=== PATIENT | female | born 1975 | race African-American/Black ===

== ENCOUNTER 2021-07-11 08:31 | Emergency (ER) | payer MEDICAID ==
[2021-07-11] MEDS ORDERED: Metoclopramide 10 MG/10 ML UDCUP ONE (09:22)
[2021-07-11] MEDS ORDERED: Acetaminophen 500 MG TAB ONE (09:22)
[2021-07-11] MEDS ORDERED: diphenhydrAMINE 50 MG/ML VIAL ONE (09:22)
[2021-07-11] MEDS ORDERED: Metoclopramide HCl 10 MG/2 ML VIAL ONE (09:23)
[2021-07-11 09:53] LABS: Hemoglobin 10.5 g/dL (12.0-16.0); Mean Corpuscular HGB CONC 30.8 g/dL (32.0-36.0); Mean Corpuscular Hemoglobin 23.1 pg (27.0-31.0); Mean Corpuscular Volume 74.8 fL (78.0-98.0); Mean Platelet Volume 8.8 fL (7.4-10.4); Platelet Count 352 thou/uL (130-400); RBC Distribution Width 16.1 % (11.5-14.5); Red Blood Cell (RBC) Count 4.55 mill/uL (4.20-5.40)
[2021-07-11 10:10] LABS: #Basophils 0.1 thou/uL (0.0-0.2); #Eosinphils 0.2 thou/uL (0.0-0.7); #Lymphocytes 2.1 thou/uL (1.20-3.40); #Monocytes 0.3 thou/uL (0.11-0.59); #Neutrophils 3.3 thou/uL (1.40-6.50); %Basophils 0.9 % (0.0-1.0); %Eosinophils 3.1 % (0.0-10.0); %Lymphocytes 35.4 % (21.0-51.0); %Neutrophils 55.5 % (42.0-75.0); ALT (SGPT) 9 U/L (8-55); AST (SGOT) 12 U/L (5-34); Albumin 3.7 g/dL (3.5-5.0); Alkaline Phosphatase 62 U/L (40-110); Anion Gap 11 mmol/L (10-20); Anisocytosis SLIGHT = 6-15 cells (100X) (0-5/hpf); BUN (Urea Nitrogen) 7 mg/dL (7.0-18.7); Bilirubin, Total 0.6 mg/dL (0.2-1.2); Calc. Creatinine Clearance 0 mL/min (70-130); Calcium 9.3 mg/dL (7.8-10.44); Carbon Dioxide 25 mmol/L (22-29); Chloride 105 mmol/L (98-107); Globulin 3.4 g/dL (2.4-3.5); Glucose 119 mg/dL (70-105); MDiff Complete? YES; Microcytosis MODERATE=15-30 cells (100X) (0-5/hpf); Platelet Morphology Comment Appears Adequate; Polychromasia SLIGHT = 2-3 cells (100X) (0-2/hpf); Potassium 3.6 mmol/L (3.5-5.1); Protein, Total 7.1 g/dL (6.0-8.3); Sodium 137 mmol/L (136-145)
[2021-07-11] MEDS ORDERED: Iopamidol-370 76% 500 ML 1 ML ONE (10:15)
== END 2021-07-11 12:20 | disposition home or self-care (01) ==
LOC: ERS 08:31
DX: R51.9 Headache, unspecified (principal); R07.9 Chest pain, unspecified; D64.9 Anemia, unspecified
CPT/HCPCS: 70496; 70498; 71045; 80053; 84484; 85025; 93005; 96374; 96375; J1200; J2765; Q9967

== ENCOUNTER 2021-10-07 18:51 | Emergency (ER) | payer MEDICAID ==
[2021-10-07] MEDS ORDERED: Ondansetron ODT 4 MG TAB ONE (19:39)
[2021-10-07] MEDS ORDERED: Acetaminophen 500 MG TAB ONE (19:39)
[2021-10-08 13:34] LABS: SARS-CoV-2 PCR by NAA DETECTED (NotDetected)
== END 2021-10-07 19:44 | disposition home or self-care (01) ==
LOC: ERS 18:51
DX: U07.1 COVID-19 (principal); J32.0 Chronic maxillary sinusitis
CPT/HCPCS: 99284; Q0162; U0003; U0005

== ENCOUNTER 2023-03-17 08:37 | Outpatient (CLI) | payer OTHER | END 2023-03-17 08:38 | disposition home or self-care (01) | LOC: SCSMRI 08:37 | PROVIDERS: ATTEND Neurological Surgery | DX: M47.26 Other spondylosis with radiculopathy, lumbar region (principal); M47.22 Other spondylosis with radiculopathy, cervical region; Z98.890 Other specified postprocedural states | CPT/HCPCS: 72100; 72141; 72148; 72158 ==

== ENCOUNTER 2023-04-22 17:03 | Emergency (ER) | payer BC, MEDICAID, OTHER ==
[2023-04-22 18:25] LABS: #Basophils 0.1 thou/uL (0.0-0.2); #Eosinphils 0.2 thou/uL (0.0-0.7); #Monocytes 0.6 thou/uL (0.11-0.59); #Neutrophils 6.4 thou/uL (1.40-6.50); %Basophils 0.6 % (0.0-1.0); %Eosinophils 1.7 % (0.0-10.0); %Lymphocytes 23.9 % (21.0-51.0); %Monocytes 5.9 % (0.0-10.0); %Neutrophils 67.2 % (42.0-75.0); Hemoglobin 7.7 g/dL (12.0-16.0); Mean Corpuscular HGB CONC 28.4 g/dL (32.0-36.0); Mean Corpuscular Hemoglobin 20.9 pg (27.0-31.0); Mean Corpuscular Volume 73.4 fl (78.0-98.0); Mean Platelet Volume 10.7 fL (7.4-10.4); Platelet Count 382 10x3/uL (130-400); RBC Distribution Width 18.2 % (11.5-14.5); Red Blood Cell (RBC) Count 3.69 mill/uL (4.20-5.40); White Blood Cell (WBC) Count 9.6 10x3/uL (4.8-10.8)
[2023-04-22 18:37] LABS: INR-International Normal Ratio 1.2; PTT 32.6 sec (22.9-36.1); Prothrombin Time 15.6 sec (12.0-14.7)
[2023-04-22 18:47] LABS: ALT (SGPT) 15 U/L (8-55); AST (SGOT) 16 U/L (5-34); Albumin 3.7 g/dL (3.5-5.0); Alkaline Phosphatase 56 U/L (40-110); Anion Gap 10 mmol/L (10-20); BUN (Urea Nitrogen) 10 mg/dL (7.0-18.7); Bilirubin, Total 0.2 mg/dL (0.2-1.2); Calc. Creatinine Clearance 0 mL/min (70-130); Calcium 9.1 mg/dL (7.8-10.44); Carbon Dioxide 27 mmol/L (22-29); Chloride 106 mmol/L (98-107); Estimated GFR 83; Globulin 3.3 g/dL (2.4-3.5); Glucose 96 mg/dL (70-105); Potassium 4.2 mmol/L (3.5-5.1); Sodium 139 mmol/L (136-145)
[2023-04-22 18:48] LABS: CellaVision Operator ID LAB.KB; Elliptocytes SLIGHT = 2-5 cells HPF (0-1); Hypochromia SLIGHT = 6-15 cells HPF (0-5); Microcytosis SLIGHT = 6-15 cells HPF (0-5); Platelet Adequacy Comment Platelets Normal; Polychromasia SLIGHT = 2-3 cells HPF (0-2); Tear Drops SLIGHT = 2-5 cells HPF (0-1)
== END 2023-04-23 00:45 | disposition home or self-care (01) ==
LOC: ERS 17:03
DX: D64.9 Anemia, unspecified (principal)
CPT/HCPCS: 36415; 36430; 80053; 85025; 85610; 85730; 86850; 86870; 86880; 86900; 86901; 86922; P9016